=== PATIENT | female | born 1990 | race Caucasian/White ===

== ENCOUNTER 2016-08-27 12:51 | Emergency (ER) | payer OTHER ==
[2016-08-27 13:00] VITALS: BP 132/88; PULSE 76; TEMP 98; BMI 22.2
--- NOTE | 2016-08-27 13:06 | PDOC ---
History of Present Illness <Jayne Cano - Last Filed: 08/27/16 15:17> - General History Source: Patient Exam Limitations: No Limitations - History of Present Illness Initial Comments: 08/27/16 14:53 The patient is a 26 year old female, with a significant past medical history of asthma, GERD, and Adie syndrome, who presents to the emergency department with migraine headache started today. Patient reports the pain started while she was at work, while looking at the computer. She ranks her headache pain a 10/10 in pain intensity. She denies any recent stressful events. She denies chest pain and shortness of breath. She denies fever and chills. She denies nausea, vomit, diarrhea and constipation. Allergies: NKDA Past surgical history: denies Social history: denies EtOH, drug, tobacco use PCP: <Tacho Green - Last Filed: 08/27/16 15:27> - General Chief Complaint: Migraine Headache Stated Complaint: MIGRAINE Time Seen by Provider: 08/27/16 13:01 Past History - Past Medical History Asthma: Yes GI Disorders: Yes (GERD) - Immunization History Td Vaccination: Yes Immunization Up to Date: Yes - Psycho/Social/Smoking Cessation Hx Anxiety: No Suicidal Ideation: No Smoking Status: No Smoking History: Never smoked Number of Cigarettes Smoked Daily: 0 Hx Alcohol Use: No Drug/Substance Use Hx: No Substance Use Type: None <Jayne Cano - Last Filed: 08/27/16 15:17> - Past Medical History Other medical history: ADIE SYNDROME <Tacho Green - Last Filed: 08/27/16 15:27> - Past Medical History Allergies/Adverse Reactions: Allergies Allergy/AdvReac Type Severity Reaction Status Date / Time shrimp Allergy Mild Hives Verified 08/27/16 12:53 Home Medications: Ambulatory Orders Naproxen [EC-Naprosyn] 375 mg PO BID #14 tablet. 08/27/16 Ondansetron [Zofran *Odt*] 8 mg SL TID #14 od.tablet 08/27/16 Review of Systems - Review of Systems Constitutional: No: Chills, Diaphoresis, Fever, Weakness HEENTM: No: Eye Pain, Blurred Vision, Ear Pain, Ear Discharge, Throat Swelling, Mouth Pain Respiratory: No: Shortness of Breath, Stridor, Wheezing, Productive cough Cardiac (ROS): No: Chest Pain, Edema, Lightheadedness, Palpitations ABD/GI: No: Abdominal Distended, Constipated, Diarrhea, Nausea, Poor Appetite, Vomiting : No: Dysuria, Frequency, Flank Pain, Urgency Musculoskeletal: No: Back Pain, Joint Pain, Muscle Pain Neurological: Yes: Headache. No: Numbness, Paresthesia, Tingling, Weakness, Dizziness Psychiatric: No: Anxiety, Depression <Tacho Green - Last Filed: 08/27/16 15:27> *Physical Exam - Vital Signs Last Vital Signs Temp Pulse Resp BP Pulse Ox 98.0 F 76 16 132/88 100 08/27/16 12:52 08/27/16 12:52 08/27/16 12:52 08/27/16 12:52 08/27/16 12:52 <Jayne Cano S - Last Filed: 08/27/16 15:17> - Vital Signs Last Vital Signs Temp Pulse Resp BP Pulse Ox 98.0 F 76 16 132/88 100 08/27/16 12:52 08/27/16 12:52 08/27/16 12:52 08/27/16 12:52 08/27/16 12:52 - Physical Exam General Appearance: Yes: Nourished, Appropriately Dressed HEENT: positive: MARTIN, Normal ENT Inspection, Normal Voice, Symmetrical, TMs Normal, Pharynx Normal, Other (Isochoric (LEFT pupil is bigger)) Neck: positive: Supple, Other (Mild tension in cervical muscle.). negative: Tender, Decreased range of motion Respiratory/Chest: positive: Lungs Clear, Normal Breath Sounds. negative: Chest Tender, Respiratory Distress, Accessory Muscle Use, Crackles, Rales, Rhonchi, Wheezing Cardiovascular: positive: Regular Rhythm, Regular Rate. negative: JVD, Tachycardia Musculoskeletal: positive: Normal Inspection. negative: CVA Tenderness Extremity: positive: Normal Capillary Refill, Normal Inspection, Normal Range of Motion. negative: Tender, Erythema Integumentary: positive: Normal Color, Dry. negative: Warm Neurologic: positive: mortgage assistant II-XII NML intact, Fully Oriented, Alert, Normal Mood/ Affect, Normal Response, Motor Strength 5/5, Other (Mild to moderate pain on the right oriental orthodox.) <Tacho Green - Last Filed: 08/27/16 15:27> ED Treatment Course - ADDITIONAL ORDERS Additional order review: Laboratory Results 08/27/16 13:20 Urine HCG, Qual Negative - Medications Given in the ED: ED Medications Discontinued Medications Generic Name Dose Route Start Last Admin Trade Name Zafar PRN Reason Stop Dose Admin Diphenhydramine HCl 25 mg 08/27/16 13:20 08/27/16 13:28 Benadryl Injection - IVPUSH 08/27/16 13:21 25 mg ONCE ONE Administration Ketorolac Tromethamine 30 mg 08/27/16 13:19 08/27/16 13:40 Toradol Injection - IVPUSH 08/27/16 13:20 30 mg ONCE ONE Administration Ondansetron HCl 4 mg 08/27/16 13:19 08/27/16 13:30 Zofran Injection IVPUSH 08/27/16 13:20 4 mg ONCE ONE Administration <Tacho Green - Last Filed: 08/27/16 15:27> Medical Decision Making - Medical Decision Making 08/27/16 15:27 Much improved after medication. Case discussed with will follow up. <Tacho Green - Last Filed: 08/27/16 15:27> *DC/Admit/Observation/Transfer - Discharge Dispostion Admit: No <Jayne Cano - Last Filed: 08/27/16 15:17> - Attestations Scribe Attestion: 08/27/16 14:56 Documentation prepared by Tacho Green, acting as biomedical equipment technician for Jayne Cano MD. <Tacho Green - Last Filed: 08/27/16 15:27> Diagnosis at time of Disposition: Migraine Qualifiers: Migraine type: unspecified Status migrainosus presence: without status migrainosus Intractability: not intractable Qualified Code(s): G43.909 - Migraine, unspecified, not intractable, without status migrainosus - Discharge Dispostion Condition at time of disposition: Good - Prescriptions Prescriptions: Naproxen [EC-Naprosyn] 375 mg PO BID #14 tablet. Ondansetron [Zofran *Odt*] 8 mg SL TID #14 od.tablet - Referrals Referrals: Jackson Martínez MD [Primary Care Provider] - - Patient Instructions Printed Discharge Instructions: DI for Migraine - Post Discharge Activity Work/School Note: Back to Work
[2016-08-27] MEDS ORDERED: ONDANSETRON 4 MG/2 ML VIAL IVPUSH ONE (13:19)
[2016-08-27] MEDS ORDERED: KETOROLAC TROMETHAMINE 30 MG/1 ML VIAL IVPUSH ONE (13:19)
[2016-08-27] MEDS ORDERED: KETOROLAC TROMETHAMINE 30 MG/1 ML VIAL ONE (13:21)
[2016-08-27] MEDS ORDERED: ONDANSETRON 4 MG/2 ML VIAL ONE (13:21)
== END 2016-08-27 15:30 | disposition home or self-care (01) ==
LOC: FER 12:51
PROC: 3E033GC Introduction of Other Therapeutic Substance into Peripheral Vein, Percutaneous Approach (ICD-10-PCS; principal; 2016-08-27)
PROC: 3E0333Z Introduction of Anti-inflammatory into Peripheral Vein, Percutaneous Approach (ICD-10-PCS; 2016-08-27)
DX: G43.909 Migraine, unspecified, not intractable, without status migrainosus (principal); H57.059 Tonic pupil, unspecified eye; J45.909 Unspecified asthma, uncomplicated; K21.9 Gastro-esophageal reflux disease without esophagitis
CPT/HCPCS: 84703; 99282-25